=== PATIENT | female | born 1960 | race Caucasian/White ===

== ENCOUNTER 2021-09-28 13:41 | Observation (INO) | payer SELFPAY ==
[~2021-09-28] VITALS: Ht 175.3 cm; Wt 100.0 kg
[~2021-09-28 13:41] MED LIST: CPR500T PO; CYCL10TA9 PO; HCT25T PO; NAPR-243 PO; OLME20TA5 PO; TRIA1CAP PO
[2021-09-28] MEDS ORDERED: cefTRIAXone 1 GM PRE-MIX 50 ML IV STA (14:25)
[2021-09-28] MEDS ORDERED: NS IV 1000 ML 1,000 ML IV STA (14:25)
--- NOTE | 2021-09-28 14:29 | ED Abdominal Pain ---
General Chief Complaint: Abdominal/GI Problems Stated Complaint: SIDE / BACK PAIN - DECREASED URINATION Nursing Triage Note: PT AMB TO RM 8 WITH C.O ABD PAIN THAT STARTES IN LLQ AND RADIATES TO BACK. PAIN STARTED THE LAST COUPLE OF DAYS BUT GOT WORSE LAST NIGHT Source of Information: Patient Exam Limitations: No Limitations History of Present Illness Date Seen by Provider: Sep 28, 2021 Time Seen by Provider: 14:26 Initial Comments Patient is a 61-year-old female presents ED with left lower quad abdominal pain. This started 2 to 3 days ago. She reports constant dull achy pain with radiation to left flank. Pain is worse when she breathes. Decreased urination. History of kidney stones and UTI. She has a low-grade fever slightly tachycardic here. Denies taking medication at home. Denies nausea, vomiting, diarrhea. History of C-sections. She reports nightly cough without any exacerbating symptoms such as significant wheezing, short of breath. Denies any current chest pain, headache, dizziness, visual changes, headache. Allergies and Home Medications Allergies Coded Allergies: No Known Drug Allergies (Unverified , 11/18/11) Patient Home Medication List Home Medication List Reviewed: Yes Ciprofloxacin (Cipro) 500 Mg Tablet, 1 TAB PO BID Prescribed by: DREW CAMPOS on 05/18/13 1030 Review of Systems Review of Systems Constitutional: No fever, No malaise, No weakness EENTM: No See HPI, No Blurred Vision, No Double Vision, No Eye Tearing Respiratory: Denies SOA With Exertion, Denies SOA at Rest Cardiovascular: Denies Chest Pain, Denies Edema, Denies Irregular Heart Rate Gastrointestinal: Abdominal Pain; Denies Constipated, Denies Diarrhea, Denies Nausea, Denies Vomiting Genitourinary: Denies Burning, Denies Discharge; Pain, Urgency Musculoskeletal: back pain; No joint pain Skin: No change in color, No change in hair/nails All Other Systems Reviewed Negative Unless Noted: Yes Past Ayabhzj-Dsoebv-Tfbiah Hx Patient Social History Tobacco Use?: No Substance use?: No Alcohol Use?: No Pt feels they are or have been: No Past Medical History Surgery/Hospitalization HX: HTN, HLD, DM Reproductive Disorders: No Kidney Stones Family Medical History No Pertinent Family Hx, Cancer Mother has lupus Physical Exam Vital Signs Vital Signs - First Documented 09/28/21 14:20 Temp 38.9 Pulse 100 Resp 17 B/P (MAP) 141/94 (110) Capillary Refill : Less Than 3 Seconds Height/Weight/BMI Height: '" Weight: 207lbs. oz. 93.364171tq; 33.00 BMI Method:Stated General Appearance: WD/WN, no apparent distress HEENT: PERRL/EOMI, normal ENT inspection, TMs normal, pharynx normal Neck: non-tender, full range of motion, supple, normal inspection Respiratory: chest non-tender, lungs clear, normal breath sounds, no respiratory distress, no accessory muscle use Cardiovascular: no edema, no gallop, no JVD, tachycardia Gastrointestinal: normal bowel sounds, non tender, no organomegaly, no pulsatile mass, tenderness (Left flank tenderness.) Extremities: normal range of motion, non-tender, normal inspection Back: CVA tenderness (L) Neurologic/Psychiatric: ict support and test engineers II-XII nml as tested, no motor/sensory deficits, alert, normal mood/affect, oriented x 3 Focused Exam Lactate Level 09/28/21 14:28: Lactic Acid Level 1.94 Lactic Acid Level Laboratory Tests Test 09/28/21 14:28 Lactic Acid Level 1.94 MMOL/L (0.50-2.00) Progress/Results/Core Measures Results/Orders Lab Results Laboratory Tests Test 09/28/21 00:00 09/28/21 14:25 09/28/21 14:28 09/28/21 14:32 Range/Units White Blood Count 23.8 H 4.3-11.0 10^3/uL Red Blood Count 5.30 H 3.80-5.11 10^6/uL Hemoglobin 15.2 11.5-16.0 g/dL Hematocrit 45 35-52 % Mean Corpuscular Volume 86 80-99 fL Mean Corpuscular Hemoglobin 29 25-34 pg Mean Corpuscular Hemoglobin Concent 34 32-36 g/dL Red Cell Distribution Width 13.4 10.0-14.5 % Platelet Count 351 130-400 10^3/uL Mean Platelet Volume 9.8 9.0-12.2 fL Immature Granulocyte % (Auto) 1 % Neutrophils (%) (Auto) 83 H 42-75 % Lymphocytes (%) (Auto) 7 L 12-44 % Monocytes (%) (Auto) 9 0-12 % Eosinophils (%) (Auto) 0 0-10 % Basophils (%) (Auto) 0 0-10 % Neutrophils # (Auto) 19.6 H 1.8-7.8 10^3/uL Lymphocytes # (Auto) 1.8 1.0-4.0 10^3/uL Monocytes # (Auto) 2.1 H 0.0-1.0 10^3/uL Eosinophils # (Auto) 0.1 0.0-0.3 10^3/uL Basophils # (Auto) 0.1 0.0-0.1 10^3/uL Immature Granulocyte # (Auto) 0.1 0.0-0.1 10^3/uL Neutrophils % (Manual) 85 % Lymphocytes % (Manual) 8 % Monocytes % (Manual) 7 % Blood Morphology Comment NORMAL Sodium Level 135 135-145 MMOL/L Potassium Level 3.7 3.6-5.0 MMOL/L Chloride Level 99 98-107 MMOL/L Carbon Dioxide Level 24 21-32 MMOL/L Anion Gap 12 5-14 MMOL/L Blood Urea Nitrogen 12 7-18 MG/DL Creatinine 1.08 0.60-1.30 MG/DL Estimat Glomerular Filtration Rate 58 BUN/Creatinine Ratio 11 Glucose Level 202 H 70-105 MG/DL Calcium Level 9.6 8.5-10.1 MG/DL Corrected Calcium 9.6 8.5-10.1 MG/DL Total Bilirubin 1.4 H 0.1-1.0 MG/DL Aspartate Amino Transf (AST/SGOT) 21 5-34 U/L Alanine Aminotransferase (ALT/SGPT) 26 0-55 U/L Alkaline Phosphatase 160 H 40-136 U/L C-Reactive Protein High Sensitivity 8.18 H 0.00-0.50 MG/DL Total Protein 7.3 6.4-8.2 GM/DL Albumin 4.0 3.2-4.5 GM/DL Lipase 9 8-78 U/L Prothrombin Time 14.7 12.2-14.7 SEC INR Comment 1.1 0.8-1.4 Activated Partial Thromboplast Time 32 24-35 SEC Lactic Acid Level 1.94 0.50-2.00 MMOL/L Urine Color ORANGE Urine Clarity CLOUDY Urine pH 6.0 5-9 Urine Specific [place] 1.025 H 1.016-1.022 Urine Protein 2+ H NEGATIVE Urine Glucose (UA) NEGATIVE NEGATIVE Urine Ketones NEGATIVE NEGATIVE Urine Nitrite POSITIVE H NEGATIVE Urine Bilirubin 1+ H NEGATIVE Urine Urobilinogen 2.0 < = 1.0 MG/DL Urine Leukocyte Esterase 2+ H NEGATIVE Urine RBC (Auto) 3+ H NEGATIVE Urine RBC 50-100 H /HPF Urine WBC 25-50 H /HPF Urine Squamous Epithelial Cells 2-5 /HPF Urine Crystals NONE /LPF Urine Amorphous Sediment FEW KE PHOSPHATE H /LPF Urine Bacteria MODERATE H /HPF Urine Casts NONE /LPF Urine Mucus MODERATE H /LPF Urine Culture Indicated YES My Orders Orders - SHANE ALONSO Ua Culture If Indicated (09/28/21 13:52) Cbc With Automated Diff (09/28/21 14:25) Comprehensive Metabolic Panel (09/28/21 14:25) Blood Culture (09/28/21 14:25) Lactic Acid Analyzer (09/28/21 14:25) Ns Iv 1000 Ml (Sodium Chloride 0.9%) (09/28/21 14:25) Ceftriaxone 1 Gm Pre-Mix (Rocephin 1 Gm (09/28/21 14:25) Lipase (09/28/21 14:25) Hs C Reactive Protein (09/28/21 14:25) Partial Thromboplastin Time (09/28/21 14:25) Protime With Inr (09/28/21 14:25) Urine Culture (09/28/21 14:32) Acetaminophen Tablet (Tylenol Tablet) (09/28/21 15:00) Ct Abdomen/Pelvis W (09/28/21 14:59) Manual Differential (09/28/21 UNK) Blood Culture (09/28/21 15:09) Iohexol Injection (Omnipaque 350 Mg/Ml 1 (09/28/21 16:00) Received Contrast (Hold Metformin- Contr (09/28/21 16:00) Ns (Ivpb) (Sodium Chloride 0.9% Ivpb Bag (09/28/21 16:00) Ed Admission (Communication) (09/28/21 16:50) Medications Given in ED Current Medications Medications Dose Ordered Sig/Festus Route Start Time Stop Time Status Last Admin Dose Admin Acetaminophen 1,000 mg ONCE ONCE PO 09/28/21 15:00 09/28/21 15:01 DC 09/28/21 15:07 1,000 MG Iohexol 100 ml ONCE ONCE IV 09/28/21 16:00 09/28/21 16:01 DC 09/28/21 16:03 100 ML Sodium Chloride 100 ml ONCE ONCE IV 09/28/21 16:00 09/28/21 16:01 DC 09/28/21 16:03 80 ML Vital Signs/I&O 09/28/21 14:20 Temp 38.9 Pulse 100 Resp 17 B/P (MAP) 141/94 (110) Blood Pressure Mean: 110 Departure Communication (Admissions) Time/Spoke to Admitting Phy: 16:51 Patient tachycardic and febrile on arrival. Left lower quad abdominal pain. Concerning for UTI versus nephrolithiasis. Urinalysis positive for infection. Blood cultures pending. Normal lactic acid. White blood count 23.8. Elevated CRP. CT abdomen pelvis concerning for left pyelonephritis. Possible nephrolithiasis left kidney versus contrast. Patient was discussed with Dr. Masterson accepts patient for admission. Patient was given IV Rocephin. History of hypertension, diabetes, dyslipidemia. Impression Primary Impression: Pyelonephritis Disposition: 01 HOME, SELF-CARE Condition: Stable Admissions Decision to Admit Reason: Admit from ER (General) Decision to Admit/Date: Sep 28, 2021 Time/Decision to Admit Time: 16:51 Departure-Patient Inst. Referrals: [facility] (PCP) Primary Care Physician KAYLA GUNDERSON APRN (Family) Primary Care Physician SHANE ALONSO Sep 28, 2021 14:29
[2021-09-28 14:47] LABS: BASOPHILS # (AUTO) 0.1 10^3/uL (0.0-0.1); BASOPHILS % (AUTO) 0 % (0-10); EOSINOPHILS # (AUTO) 0.1 10^3/uL (0.0-0.3); EOSINOPHILS % (AUTO) 0 % (0-10); HEMATOCRIT 45 % (35-52); HEMOGLOBIN 15.2 g/dL (11.5-16.0); LYMPHOCYTES # (AUTO) 1.8 10^3/uL (1.0-4.0); LYMPHOCYTES % (AUTO) 7 % (12-44); MEAN CORPUSCULAR HEMOGLOBIN 29 pg (25-34); MEAN CORPUSCULAR HGB CONC 34 g/dL (32-36); MEAN CORPUSCULAR VOLUME 86 fL (80-99); MEAN PLATELET VOLUME 9.8 fL (9.0-12.2); MONOCYTES # (AUTO) 2.1 10^3/uL (0.0-1.0); MONOCYTES % (AUTO) 9 % (0-12); NEUTROPHILS # (AUTO) 19.6 10^3/uL (1.8-7.8); NEUTROPHILS % (AUTO) 83 % (42-75); PLATELET COUNT 351 10^3/uL (130-400); WHITE BLOOD COUNT 23.8 10^3/uL (4.3-11.0)
[2021-09-28 14:48] LABS: CLARITY,URINE CLOUDY; COLOR,URINE ORANGE; GLUCOSE, URINE (UA) NEGATIVE (NEGATIVE); KETONES,URINE NEGATIVE (NEGATIVE); LEUKOCYTE ESTERASE ,URINE 2+ (NEGATIVE); NITRITE,URINE POSITIVE (NEGATIVE); PROTEIN,URINE 2+ (NEGATIVE)
[2021-09-28 14:54] LABS: BILIRUBIN,URINE 1+ (NEGATIVE)
[2021-09-28 14:57] LABS: AMORPHOUS SEDIMENT,UR FEW AMOR PHOSPHATE /LPF; BACTERIA,URINE MODERATE /HPF; RBC,URINE 50-100 /HPF; WBC,URINE 25-50 /HPF
[2021-09-28] MEDS ORDERED: ACETAMINOPHEN 500 MG TAB (TYLENOL) PO ONE (15:00)
[2021-09-28 15:12] LABS: POTASSIUM 3.7 MMOL/L (3.6-5.0)
[2021-09-28 15:13] LABS: CALCIUM 9.6 MG/DL (8.5-10.1)
[2021-09-28 15:14] LABS: TOTAL PROTEIN 7.3 GM/DL (6.4-8.2)
[2021-09-28 15:16] LABS: BILIRUBIN,TOTAL 1.4 MG/DL (0.1-1.0)
[2021-09-28 15:18] LABS: CREATININE SERUM 1.08 MG/DL (0.60-1.30)
[2021-09-28 15:25] LABS: INR 1.1 (0.8-1.4); PROTHROMBIN TIME PATIENT 14.7 SEC (12.2-14.7)
[2021-09-28 15:44] LABS: LYMPHOCYTES % (MANUAL) 8 %; MONOCYTES % (MANUAL) 7 %; NEUTROPHILS % (MANUAL) 85 %; RBC MORPH NORMAL
[2021-09-28] MEDS ORDERED: NS 100 ML (IVPB) BAG IV ONE (16:00)
[2021-09-28] MEDS ORDERED: IOHEXOL 350 MG/ML 100 ML (OMNIPAQUE 350) VIAL IV ONE (16:00)
[2021-09-28] MEDS ORDERED: HOLD METFORMIN - RECEIVED CONTRAST 20 ML VIAL IV SCH (16:00)
--- NOTE | 2021-09-28 16:24 | Diagnostic Imaging Report ---
PROCEDURE: CT abdomen and pelvis with contrast. TECHNIQUE: Multiple contiguous axial images were obtained through the abdomen and pelvis after administration of intravenous contrast. Auto Exposure Controls were utilized during the CT exam to meet ALARA standards for radiation dose reduction. All CT scans use one or more of the following dose optimizing techniques: Automated exposure control, MA and/or KvP adjustment based on patient size and exam type or iterative reconstruction. INDICATION: Left lower quadrant abdominal pain radiating to the back. COMPARISON: None. FINDINGS: There is dependent atelectasis in the lung bases. The heart is normal in size. The liver demonstrates no focal lesions. There is fatty infiltration of the liver. The spleen is large measuring 13.9 cm in length. The pancreas appears normal. The adrenal glands appear normal. The right kidney demonstrates normal enhancement. Hyperdensities in the kidney are thought to be contrast excretion rather than calculi. There is no hydronephrosis. The left kidney demonstrates perirenal fat stranding, and there is some heterogeneous enhancement inferiorly. There is a hypodense nonenhancing lesion measuring 2.4 cm in the inferior pole, which likely represents a simple cyst. Hyperdensities in the inferior pole may represent calcifications or contrast excretion. There is fat stranding about the proximal left ureter. The urinary bladder wall is mildly thickened, but this may be due to underdistention. No free fluid or free air is seen. The aorta is normal in caliber. There are multiple prominent retroperitoneal lymph nodes, measuring up to 9 mm in the short axis, which are likely reactive. The appendix is normal. The bowel loops are nondistended without obstruction. There are small fat-containing bilateral inguinal hernias, left greater than right. No acute osseous abnormality is seen. There are degenerative changes in the pubic symphysis and the lumbar spine. IMPRESSION: 1. Findings of left pyelonephritis. Hyperdensities in the inferior left kidney may represent calculi versus excretion of contrast. 2. Mildly prominent retroperitoneal lymph nodes, likely reactive. However, there is also mild splenomegaly. Malignancy such as lymphoma is thought less likely; however, consider follow-up three months after resolution of the infection. 3. Hepatic steatosis. Dictated by: Dictated on workstation # [id number]
[2021-09-28] MEDS: ENOXAPARIN 40 MG/0.4 ML (LOVENOX) SYR SC SCH (18:29)
[2021-09-28] MEDS ORDERED: NALOXONE 0.4 MG/ML 1 ML (NARCAN) VIAL IV PRN (18:30)
[2021-09-28] MEDS ORDERED: ANTACID SUSP 30 ML UDC (MYLANTA) PO PRN (18:30)
[2021-09-28] MEDS ORDERED: PROMETHAZINE INJ 25 MG/ML (PHENERGAN) AMP IM PRN (18:30)
[2021-09-28] MEDS ORDERED: CALCIUM CARBONATE 500 MG (TUMS) TAB.CHEW PO PRN (18:30)
[2021-09-28] MEDS ORDERED: ONDANSETRON 4 MG (ZOFRAN) ORAL DISSOLVE TAB PO PRN (18:30)
[2021-09-28] MEDS ORDERED: LACTULOSE SYRUP 10GM/15ML (ENULOSE) 30ML UDC PO PRN (18:30)
[2021-09-28] MEDS ORDERED: ALPRAZolam 0.25 MG (XANAX) TAB PO PRN (18:30)
[2021-09-28] MEDS ORDERED: MELATONIN 3 MG TABLET PO PRN (18:30)
[2021-09-28] MEDS ORDERED: MILK OF MAGNESIA 400 MG/5 ML 30 ML UDC PO PRN (18:30)
[2021-09-28] MEDS ORDERED: polyethylene glycoL POWDER 17 GM (MIRALAX) PACK PO PRN (18:30)
[2021-09-28] MEDS ORDERED: ONDANSETRON 4 MG/2 ML (SDV) Z0FRAN IV PRN (18:30)
[2021-09-28] MEDS ORDERED: diphenhydrAMINE 50 MG/ML INJ (BENADRYL) IVP PRN (18:30)
[2021-09-28] MEDS ORDERED: BISACODYL 10 MG SUPP (DULCOLAX) PR PRN (18:30)
[2021-09-28] MEDS ORDERED: diphenhydrAMINE 25 MG TAB (BENADRYL) PO PRN (18:30)
[2021-09-28] MEDS ORDERED: morphine INJ 4 MG/ML 1 ML (VIAL/SYRINGE) IV PRN (18:30)
[2021-09-28 19:24] VITALS: BP 102/54
[2021-09-28] MEDS: KETOROLAC 15 MG/ML VIAL IV PRN (20:46)
[2021-09-28] MEDS: inSUlin ASPART (NovoLOG) 1 UNIT/0.01 ML (CHARGE PER UNIT) SC SCH (20:47)
[2021-09-28] MEDS: DOCUSATE SODIUM 100 MG (COLACE) CAP PO SCH (21:40)
[2021-09-28] MEDS: SENNOSIDES 8.6 MG (SENOKOT) TAB PO SCH (21:40)
[2021-09-29] VITALS: BP 127/74
[2021-09-29] MEDS: IBUPROFEN TABLET 200 MG TAB PO SCH ×4 (00:05→17:29)
[2021-09-29] MEDS: ACETAMINOPHEN 325 MG TABLET PO PRN ×2 (01:55→15:35)
[2021-09-29 03:59] VITALS: BP 131/66
[2021-09-29 05:51] LABS: BASOPHILS # (AUTO) 0.1 10^3/uL (0.0-0.1); BASOPHILS % (AUTO) 0 % (0-10); EOSINOPHILS # (AUTO) 0.2 10^3/uL (0.0-0.3); EOSINOPHILS % (AUTO) 1 % (0-10); HEMATOCRIT 42 % (35-52); LYMPHOCYTES # (AUTO) 3.2 10^3/uL (1.0-4.0); LYMPHOCYTES % (AUTO) 13 % (12-44); MEAN CORPUSCULAR HEMOGLOBIN 29 pg (25-34); MEAN CORPUSCULAR HGB CONC 33 g/dL (32-36); MEAN CORPUSCULAR VOLUME 86 fL (80-99); MEAN PLATELET VOLUME 9.9 fL (9.0-12.2); MONOCYTES # (AUTO) 2.6 10^3/uL (0.0-1.0); MONOCYTES % (AUTO) 11 % (0-12); NEUTROPHILS # (AUTO) 17.4 10^3/uL (1.8-7.8); NEUTROPHILS % (AUTO) 74 % (42-75); PLATELET COUNT 301 10^3/uL (130-400); WHITE BLOOD COUNT 23.6 10^3/uL (4.3-11.0)
[2021-09-29] MEDS: inSUlin ASPART (NovoLOG) 1 UNIT/0.01 ML (CHARGE PER UNIT) SC SCH ×4 (05:58→21:15)
[2021-09-29 06:21] LABS: ALBUMIN 3.4 GM/DL (3.2-4.5); BILIRUBIN,TOTAL 1.5 MG/DL (0.1-1.0); CALCIUM 8.9 MG/DL (8.5-10.1); CREATININE SERUM 0.84 MG/DL (0.60-1.30); POTASSIUM 3.5 MMOL/L (3.6-5.0); TOTAL PROTEIN 6.5 GM/DL (6.4-8.2)
--- NOTE | 2021-09-29 06:31 | History & Physical-Hospitalist ---
History of Present Illness HPI/Chief Complaint Chief complaint: Pyelonephritis with kidney stone History of present illness: This is a 61-year-old white female who has a past medical history of kidney stones managed by Dr. Boston and most recently [address] Cool who presented to the ER with fever and flank pain found to have acute pyelonephritis and CT scan showed a possible kidney stone. KUB x-ray confirmed this down so I did speak with urology who recommended treatment of infection 2-week follow-up for lithotripsy. Currently she is doing much better wants to go home but I do not have urine culture back and her white count still remains 23,000. She will reluctantly stay Source: patient Exam Limitations: clinical condition Date Seen 09/29/21 Time Seen by a Provider: 10:30 Attending Physician Cristine White DO [facility] Referring Physician Date of Admission Sep 28, 2021 at 16:51 Home Medications & Allergies Home Medications Reviewed patient Home Medication Reconciliation performed by pharmacy medication reconciliations geothermal field technician and/or nursing. Patients Allergies have been reviewed. Allergies Allergies Coded Allergies No Known Drug Allergies (Unverified11/18/11) Past Rxokrgu-Bpezlc-Ihzemk Hx Patient Social History Marrital Status: Employed/Student: unemployed Tobacco Use?: No Smoking Status: Never a Smoker Use of E-Cig and/or Vaping dev: No Substance use?: No Alcohol Use?: No Pt feels they are or have been: No Immunizations Up To Date Tetanus Booster (TDap): Unknown Hepatitis A: No Hepatitis B: No Current Status status: No status: No Advance Directives: No Communicates: Verbally Primary Language: Bulgarian Preferred Spoken Language: Bulgarian Is interpretation needed?: No Sensory deficits: Vision impairment Implanted or Applied Medical D: None Past Medical History Kidney Stones Hypertension C section x 2 Family Medical History No Pertinent Family Hx, Cancer Mother has lupus Review of Systems Constitutional: see HPI, fever, malaise, weakness EENTM: no symptoms reported Respiratory: no symptoms reported Cardiovascular: no symptoms reported Gastrointestinal: nausea Genitourinary: no symptoms reported Musculoskeletal: back pain Skin: no symptoms reported Psychiatric/Neurological: No Symptoms Reported All Other Systems Reviewed Negative Unless Noted: Yes Physical Exam Physical Exam Vital Signs Vital Signs - First Documented 09/28/21 09/28/21 09/28/21 14:20 18:44 19:24 Temp 38.9 Pulse 100 Resp 17 B/P (MAP) 141/94 (110) Pulse Ox 93 O2 Delivery Room Air Capillary Refill : Less Than 3 Seconds Height, Weight, BMI Height: '" Weight: 207lbs. oz. 93.977984bw; 32.54 BMI Method:Stated General Appearance: No Apparent Distress, Chronically ill, Obese Eyes: Right Eye Normal Inspection, Right Eye PERRL HEENT: PERRL/EOMI, Normal ENT Inspection, Pharynx Normal, Moist Mucous Membranes Neck: Full Range of Motion, Normal Inspection, Non Tender Respiratory: Chest Non Tender, Lungs Clear, Normal Breath Sounds, No Accessory Muscle Use, No Respiratory Distress Cardiovascular: Regular Rate, Rhythm, No Edema, No Gallop, No JVD, No Murmur, Normal Peripheral Pulses Gastrointestinal: Normal Bowel Sounds, No Organomegaly, No Pulsatile Mass, Non Tender, Soft Back: Normal Inspection, No CVA Tenderness, No Vertebral Tenderness Extremity: Normal Capillary Refill, Normal Inspection, Normal Range of Motion, Non Tender, No Calf Tenderness, No Pedal Edema Neurologic/Psychiatric: Alert, Oriented x3, No Motor/Sensory Deficits, Normal Mood/Affect Skin: Normal Color, Warm/Dry Lymphatic: No Adenopathy Results Results/Procedures Labs Laboratory Tests 09/28/21 14:25 09/29/21 05:26 09/30/21 05:35 Patient resulted labs reviewed. Assessment/Plan Admission Diagnosis Assessment: Pyelonephritis Leukocytosis Kidney stone Plan: Antibiotics Pain control Admission Status: Observation Reason for Inpatient Admission: pyelonephritis CRISTINE WHITE DO Sep 29, 2021 06:31
[2021-09-29 07:24] VITALS: BP 129/87
--- NOTE | 2021-09-29 07:31 | Diagnostic Imaging Report ---
EXAM: ABDOMEN/KUB 1VIEW INDICATION: Kidney stones. COMPARISON: CT abdomen and pelvis 09/28/2021. FINDINGS: Calcifications overlying the lower pole of the left renal shadow in total measure up to 1.9 cm. Pelvic phleboliths. Nonspecific bowel gas pattern. No acute osseous findings. IMPRESSION: 1. Left nephrolithiasis. 2. Nonspecific bowel gas pattern. Dictated by: Dictated on workstation # [id number]
[2021-09-29] MEDS: cefTRIAXone 1 GM PRE-MIX 50 ML IV SCH (08:20)
[2021-09-29] MEDS: SENNOSIDES 8.6 MG (SENOKOT) TAB PO SCH ×2 (08:21→21:41)
[2021-09-29] MEDS: DOCUSATE SODIUM 100 MG (COLACE) CAP PO SCH ×2 (08:21→21:41)
[2021-09-29] MEDS ORDERED: PANTOPRAZOLE 40 MG (PROTONIX) VIAL IV SCH (09:00)
[2021-09-29] MEDS ORDERED: IBUP-2473 PO (09:59)
[2021-09-29] MEDS ORDERED: OLME20TA21 PO (10:00)
[2021-09-29] MEDS ORDERED: METF-478 PO (10:01)
[2021-09-29] MEDS ORDERED: ATOR20TA66 PO (10:01)
[2021-09-29] MEDS ORDERED: NS IV 1000 ML 1,000 ML IV SCH (11:15)
[2021-09-29 11:28] VITALS: BP 136/86
[2021-09-29] MEDS: KETOROLAC 15 MG/ML VIAL IV PRN (15:11)
[2021-09-29 16:21] VITALS: BP 114/56
[2021-09-29] MEDS: ENOXAPARIN 40 MG/0.4 ML (LOVENOX) SYR SC SCH (17:30)
[2021-09-29 19:57] VITALS: BP 124/63
[2021-09-29] MEDS ORDERED: OLMESARTAN 20 MG (BENICAR) TABLET PO SCH (21:00)
[2021-09-29] MEDS ORDERED: LOSARTAN 100 MG (COZAAR) TABLET PO SCH (21:00)
[2021-09-29] MEDS ORDERED: POTASSIUM CHLORIDE INJ 10 MEQ in NS IV 1000 ML 1,000 ML IV SCH (21:04)
[2021-09-29] MEDS ORDERED: NS W/KCL 20 MEQ/L 1,000 ML IV ONE (21:38)
[2021-09-29] MEDS: NS W/KCL 20 MEQ/L 1,000 ML IV SCH (21:41)
[2021-09-30] VITALS: BP 115/55
[2021-09-30] MEDS: IBUPROFEN TABLET 200 MG TAB PO SCH ×3 (00:05→11:53)
[2021-09-30] MEDS: KETOROLAC 15 MG/ML VIAL IV PRN (02:48)
[2021-09-30 03:59] VITALS: BP_SYST 111; BP_SYST 115; BP_DIAS 55; BP_DIAS 60
[2021-09-30] MEDS: inSUlin ASPART (NovoLOG) 1 UNIT/0.01 ML (CHARGE PER UNIT) SC SCH ×2 (05:36→11:53)
[2021-09-30 05:43] LABS: BASOPHILS # (AUTO) 0.1 10^3/uL (0.0-0.1); BASOPHILS % (AUTO) 0 % (0-10); EOSINOPHILS # (AUTO) 0.3 10^3/uL (0.0-0.3); EOSINOPHILS % (AUTO) 1 % (0-10); HEMATOCRIT 39 % (35-52); HEMOGLOBIN 12.7 g/dL (11.5-16.0); LYMPHOCYTES # (AUTO) 2.6 10^3/uL (1.0-4.0); LYMPHOCYTES % (AUTO) 13 % (12-44); MEAN CORPUSCULAR HEMOGLOBIN 29 pg (25-34); MEAN CORPUSCULAR HGB CONC 33 g/dL (32-36); MEAN CORPUSCULAR VOLUME 86 fL (80-99); MEAN PLATELET VOLUME 9.7 fL (9.0-12.2); MONOCYTES % (AUTO) 10 % (0-12); NEUTROPHILS # (AUTO) 14.4 10^3/uL (1.8-7.8); NEUTROPHILS % (AUTO) 73 % (42-75); PLATELET COUNT 279 10^3/uL (130-400); WHITE BLOOD COUNT 19.6 10^3/uL (4.3-11.0)
[2021-09-30 05:57] LABS: ALBUMIN 3.1 GM/DL (3.2-4.5)
[2021-09-30 05:58] LABS: POTASSIUM 3.6 MMOL/L (3.6-5.0)
[2021-09-30 05:59] LABS: CALCIUM 8.9 MG/DL (8.5-10.1)
[2021-09-30 06:00] LABS: TOTAL PROTEIN 5.9 GM/DL (6.4-8.2)
[2021-09-30 06:04] LABS: CREATININE SERUM 0.8 MG/DL (0.60-1.30)
[2021-09-30] MEDS: NS W/KCL 20 MEQ/L 1,000 ML IV SCH (07:37)
[2021-09-30] MEDS: cefTRIAXone 1 GM PRE-MIX 50 ML IV SCH (07:37)
[2021-09-30] MEDS: DOCUSATE SODIUM 100 MG (COLACE) CAP PO SCH (07:38)
[2021-09-30] MEDS: SENNOSIDES 8.6 MG (SENOKOT) TAB PO SCH (07:38)
[2021-09-30 07:58] VITALS: BP 130/88
[2021-09-30] MEDS ORDERED: PANTOPRAZOLE 40 MG (PROTONIX) TAB PO SCH (09:00)
[2021-09-30] MEDS ORDERED: OXC5T PO (11:31)
[2021-09-30] MEDS ORDERED: CEFD300C3 PO (11:31)
--- NOTE | 2021-09-30 11:34 | Discharge Summary ---
Discharge Summary Hospital Course Was the Problem List Reviewed?: Yes Problems/Dx: (1) Pyelonephritis (2) Kidney stone Hospital Course Date of Admission: Sep 28, 2021 at 16:51 Admission Diagnosis : Family Physician/Provider: Diamante Manuel Aprn Date of Discharge: 09/30/21 Discharge Diagnosis: Pyelonephritis, sepsis, kidney stone Hospital Course: Patient had an uneventful hospital course patient was admitted and placed on IV fluids IV antibiotics and kidney stone confirmed on KUB. Dimitrihin tolerated transition to Omnicef. Dr. Haddad requested antibiotics until patient is seen in his office in 2 weeks with a KUB. She was discharged improved condition. Labs and Pending Lab Test: Laboratory Tests 09/29/21 15:29: Glucometer 203H 09/29/21 20:20: Glucometer 160H 09/30/21 05:25: Glucometer 168H 09/30/21 05:35: White Blood Count 19.6H, Red Blood Count 4.46, Hemoglobin 12.7, Hematocrit 39, Mean Corpuscular Volume 86, Mean Corpuscular Hemoglobin 29, Mean Corpuscular Hemoglobin Concent 33, Red Cell Distribution Width 13.5, Platelet Count 279, Mean Platelet Volume 9.7, Immature Granulocyte % (Auto) 1, Neutrophils (%) (Auto) 73, Lymphocytes (%) (Auto) 13, Monocytes (%) (Auto) 10, Eosinophils (%) (Auto) 1, Basophils (%) (Auto) 0, Neutrophils # (Auto) 14.4H, Lymphocytes # (Auto) 2.6, Monocytes # (Auto) 2.0H, Eosinophils # (Auto) 0.3, Basophils # (Auto) 0.1, Immature Granulocyte # (Auto) 0.2H, Sodium Level 135, Potassium Level 3.6, Chloride Level 107, Carbon Dioxide Level 20L, Anion Gap 8, Blood Urea Nitrogen 12, Creatinine 0.80, Estimat Glomerular Filtration Rate 83, BUN/Creatinine Ratio 15, Glucose Level 181H, Calcium Level 8.9, Corrected Calcium 9.6, Total Bilirubin 1.0, Aspartate Amino Transf (AST/SGOT) 27, Alanine Aminotransferase (ALT/SGPT) 34, Alkaline Phosphatase 158H, Total Protein 5.9L, Albumin 3.1L 09/30/21 10:39: Glucometer 230H Microbiology 09/28/21 Blood Culture - Preliminary, Resulted No growth 09/28/21 Urine Culture - Preliminary, Resulted Escherichia coli Home Meds Active Cefdinir 300 Mg Capsule 300 Mg PO BID Oxyir Tablet (Oxycodone HCl) 5 Mg Tab 5 Mg PO Q4HR PRN Reported Atorvastatin Calcium 20 Mg Tablet 20 Mg PO DAILY Metformin HCl ER (Metformin HCl) 500 Mg Tab.er.24 500 Mg PO BID Benicar (Olmesartan Medoxomil) 20 Mg Tablet 20 Mg PO HS Ibuprofen 200 Mg Tablet 400 Mg PO DAILY PRN Assessment/Pt Instructions DIANE in [address] Haddad in 2 weeks Discharge Planning: <30 minutes discharge planning Discharge Instructions Discharge Diet: No Restrictions Activity as Tolerated: Yes Discharge Physical Examination Vital Signs Vital Signs Date Time Temp Pulse Resp B/P (MAP) Pulse Ox O2 Delivery O2 Flow Rate FiO2 09/30/21 08:00 Room Air 09/30/21 07:58 37.0 80 20 130/88 (102) 95 General Appearance: No Apparent Distress, WD/WN, Chronically ill, Obese Allergies: Coded Allergies: No Known Drug Allergies (Unverified , 11/18/11) Discharge Summary Date of Admission Sep 28, 2021 at 16:51 Date of Discharge Discharge Date: Sep 30, 2021 Admission Diagnosis Assessment: Pyelonephritis Leukocytosis Kidney stone Plan: Antibiotics Pain control DAISY GOMEZ DO Sep 30, 2021 11:34
[2021-09-30 12:00] VITALS: BP 139/84
== END 2021-09-30 12:25 | disposition home or self-care (01) ==
LOC: EDUNIT# 13:41 → ER 13:43 → 4TH 16:51
PROVIDERS: ADMIT Internal Medicine; ATTEND Internal Medicine
DX: A41.9 Sepsis, unspecified organism (principal); N20.0 Calculus of kidney; N10 Acute pyelonephritis; Z87.442 Personal history of urinary calculi
CPT/HCPCS: 36415; 74018; 74177; 80053; 81000; 82947; 83605; 83690; 85007; 85025; 85027; 85610; 85730; 86141; 87040; 87077; 87088; 87186

== ENCOUNTER → 2021-10-12 | Outpatient (CLI) | payer SELFPAY ==
[~2021-10-12] MED LIST changes: +ATOR20TA66 PO; +CEFD300C3 PO; +IBUP-2473 PO; +METF-478 PO; +OLME20TA21 PO; +OXC5T PO
--- NOTE | 2021-10-12 15:03 | Diagnostic Imaging Report ---
INDICATION: Left renal calculus. COMPARISON: 09/29/2021. FINDINGS: Two frontal radiographic views of the abdomen were obtained. Again identified is an oblong shaped extraosseous calcification projecting over the inferior pole of the left renal shadow. Smaller spherical extraosseous calcification is also seen immediately superior to this and is also suggestive of renal calculus. No unexpected radiopaque foreign bodies are seen. Multiple pelvic phleboliths are present. Small bowel loops are nondistended. There is no large collection of free intraperitoneal air. The osseous structures show age-related degenerative changes. IMPRESSION: 1. Probable multiple left renal calculi. 2. Nonobstructed small bowel gas pattern. Dictated by: Dictated on workstation # [id number]
== END ==
LOC: RAD 14:22
PROVIDERS: ATTEND Internal Medicine
DX: N20.0 Calculus of kidney (principal)
CPT/HCPCS: 74018